=== PATIENT | female | born 1980 | race Caucasian/White ===

== ENCOUNTER 2021-05-12 09:00 | Outpatient (RCR) | payer MEDICARE, OTHER | END 2021-05-18 | LOC: PT 09:00 | PROVIDERS: ATTEND Specialist | DX: S39.012A Strain of muscle, fascia and tendon of lower back, initial encounter (principal) ==

== ENCOUNTER 2021-05-25 10:00 | Outpatient (RCR) | payer MEDICARE, OTHER | END 2021-06-17 | LOC: PT 10:00 | PROVIDERS: ATTEND Specialist | DX: S39.012A Strain of muscle, fascia and tendon of lower back, initial encounter (principal) ==